=== PATIENT | male | born 1950 | race Caucasian/White ===

== ENCOUNTER 2016-06-01 05:47 | Inpatient (IN) ==
[2016-05-24 14:34] LABS: Basophils # 0.1 10*3/uL (0.0-0.2); Basophils % 0.8 % (0.0-0.8); Eosinophils # 0.2 10*3/uL (0.0-0.87); Eosinophils % 2.4 % (0.00-10.9); Hematocrit 44.5 VOL% (42.0-52.0); Hemoglobin 14.1 GM/DL (14.0-18.0); Immature Granulocytes % 1.7 %; Immature Granulocytes Absolute 0.11 #; Lymphocytes # 2.1 10*3/uL (1.4-4.0); Lymphocytes % 33.8 % (21.2-54.2); Mean Corpuscular HGB Conc 31.7 GM/DL (32-36); Mean Corpuscular Hemoglobin 28 PG (27-34); Mean Corpuscular Volume 87.1 FL (87-102); Mean Platelet Volume 9.9 FL (9.6-12.0); Monocytes # 0.6 10*3/uL (0.11-0.8); Neutrophils # 3.3 10*3/uL (1.4-7.4); Neutrophils % 52.3 % (38.7-73.9); Platelet Count 176 T/CUMM (130-400); Red Blood Count 5.11 MC/CUMM (3.8-5.5); Red Cell Distribution Width 13.7 % (9.3-17.3); White Blood Count 6.3 T/CUMM (4-12)
[2016-05-24 14:43] LABS: Bilirubin,Total 0.6 MG/DL (0.2-1.0); Calcium 9.3 MG/DL (8.5-10.1); Osmolality,Calculated 291.4 MOS/KG (273-304); Potassium 4.9 MMOL/L (3.5-5.1); Total Protein 7.2 G/DL (6.4-8.3)
[2016-06-01] MEDS ORDERED: VANCOMYCIN INJ 1,000 MG in SODIUM CHLORIDE 0.9% 250 ML IV ONE (06:00)
[2016-06-01] MEDS ORDERED: VANCOMYCIN 1,000 MG VIAL ONE (06:28)
[2016-06-01] MEDS ORDERED: ALBUTEROL/IPRATROPIUM 3 ML NEB RESP TX ONE (06:44)
[2016-06-01] MEDS ORDERED: HEPARIN/NACL 0.9% 2 UNITS/ML 2,000 ML IV ONE (07:30)
--- NOTE | 2016-06-01 08:23 | History and Physical Update ---
History and Physical Update - History and Physical H&P was reviewed, the patient examined and there: are no changes in the patients condition since last H&P was completed.
[2016-06-01] MEDS ORDERED: ROCURONIUM 100 MG/10 ML VIAL IV ONE (08:25)
[2016-06-01] MEDS ORDERED: HEPARIN 1,000 UNIT/1 ML VIAL ONE (08:25)
[2016-06-01] MEDS ORDERED: LIDOCAINE 2% 5 ML VIAL ONE (08:25)
[2016-06-01] MEDS ORDERED: PHENYLEPHRINE 20 MG/250 ML PREMIX IV ONE (08:25)
[2016-06-01] MEDS ORDERED: HEPARIN/NACL 0.9% 2 UNITS/ML 500 ML IV ONE (08:25)
[2016-06-01] MEDS ORDERED: HYDROCORTISONE 100 MG VIAL ONE (08:25)
[2016-06-01] MEDS ORDERED: ONDANSETRON 4 MG/2 ML VIAL ONE (08:25)
[2016-06-01] MEDS ORDERED: NITROGLYCERIN 50 MG/250 ML BOTTLE IV ONE (08:25)
[2016-06-01] MEDS ORDERED: ETOMIDATE 20 MG/10 ML VIAL IV ONE (08:25)
[2016-06-01] MEDS ORDERED: SEVOFLURANE 1 UNIT/15 MINUTE INH ONE (10:32)
[2016-06-01] MEDS ORDERED: fentaNYL 100 MCG/2 ML VIAL ONE (10:32)
[2016-06-01] MEDS ORDERED: MIDAZOLAM 2 MG/2 ML VIAL ONE (10:33)
[2016-06-01] MEDS ORDERED: ePHEDrine 50 MG/ML AMP ONE (10:33)
--- NOTE | 2016-06-01 10:57 | Post Interventional Procedure ---
Pre-op diagnosis: Expanding AAA s/p open repair years ago Post-op diagnosis: same Procedure: Revision of graft w/ stent-graft Contrast: [id number], 130 cc Flouroscopy: 4.8 min Radiologist: Sami Mackenzie Anesthesia: GETA Specimens: none sent Estimated blood loss: minimal Complications: none Condition: stable Description/Findings: Extended seal of graft proximally to the left renal artery. No endoleak after deployment. F/u w/ [address]
[2016-06-01] MEDS ORDERED: THROMBIN TOPICAL (RECOMBINANT) 5,000 UNIT VIAL TOP ONE (11:19)
[2016-06-01] MEDS ORDERED: TISSUE ADHESIVE 1 EACH APPLICATOR TOP ONE (11:19)
[2016-06-01] MEDS ORDERED: LIDOCAINE 2% TOP JELLY 5 ML TUBE TOP ONE (11:19)
[2016-06-01] MEDS ORDERED: VANCOMYCIN 500 MG VIAL IV ONE (11:19)
[2016-06-01] MEDS ORDERED: HEPARIN 5,000 UNIT/1 ML VIAL IV ONE (11:19)
--- NOTE | 2016-06-01 12:45 | Interventional Radiology Rpt ---
IR endo repair AAA ext [id number], US guide vascular access Indication: History of prior open aortic aneurysm repair. Now with new aneurysmal dilatation of the [place] aortic segment. REVISION OF PREVIOUS AORTOBIFEMORAL GRAFT WITH STENT GRAFT DEVICE Description: A formal timeout was performed. Patient was placed under general endotracheal anesthesia. Right common femoral artery is faintly palpable but 3 passes with a micropuncture needle were unsuccessful in gaining access. Therefore, sonographic evaluation shows the artery to be patent and compressible. Micropuncture needle was advanced directly into the lumen of the artery. Catheters sonographic image documents position of the needle. Needle was exchanged over wire for 2 Pro Lorman closure devices which were pre-deployed. Heparin 5000 units was given. Over the wire, a 12 Nepali sheath was advanced into the aorta. Flush catheter was situated above the renal artery. Abdominal aortogram was performed. Left renal artery was identified as the lowest. A 28 x 28 x 70 mm Medtronic extension cuff was advanced. The graft was then deployed with the inflow just below the left renal artery ostium. Suprarenal fixation components were then deployed. The stent graft was anchored in place with a compliant balloon. A angiogram was then performed in the aorta showing no evidence of endoleak and satisfactory positioning of the stent graft cuff. The catheter and sheath were removed. Right groin was secured with completion of the 2 Pro Lorman closure devices and 20 minutes manual compression. Hemostasis was achieved. Contrast: Omnipaque 350, 130 cc. Fluoroscopy: 4.8 minutes, 100 images total. Anesthesia: GETA. Impression: Successful revision of previous aortobifemoral graft using a Medtronic 28 x 28 x 70 mm device as described. Uncomplicated percutaneous closure of right groin access site. PROCEDURE INTERPRETED AT [facility] DEPARTMENT OF RADIOLOGY Final Report Signed by: Sami Mackenzie M.D.
--- NOTE | 2016-06-01 13:47 | Anesthesia ---
Anesthesia Post OP - Post Ansesthetic Evaluation Patient seen in post op: Yes Resp: within normal limits CV: within normal limits Mental: within normal limits Temp: within normal limits [id number]: within normal limits Nausea and Vomiting: within normal limits Pain: within normal limits
[2016-06-01] MEDS ORDERED: ONDANSETRON 4 MG/2 ML VIAL IV PRN (15:15)
[2016-06-01] MEDS ORDERED: CYANOCOBALAMIN IJ SCH (15:30)
[2016-06-01] MEDS ORDERED: [UNRECOGNIZED DRUG - OTHER] IJ SCH (15:30)
[2016-06-01] MEDS ORDERED: IPRATROPIUM INH SCH (17:00)
[2016-06-01] MEDS ORDERED: ALBUTEROL INH SCH (17:00)
[2016-06-01] MEDS ORDERED: [UNRECOGNIZED DRUG - OTHER] INH SCH (17:00)
[2016-06-01] MEDS: LACTATED RINGERS 1,000 ML IV SCH (18:06)
[2016-06-01] MEDS: KETOROLAC 10 MG TABLET PO SCH (18:43)
[2016-06-01] MEDS: ALBUTEROL 2.5 MG/3 ML NEB RESP TX SCH (19:19)
[2016-06-01] MEDS ORDERED: NON-FORMULARY MEDICATION (Gabapentin [Gabapentin] 800 MG) PO SCH (21:00)
[2016-06-01] MEDS ORDERED: MOMETASONE FUROATE 200 MCG INH SCH (21:00)
[2016-06-02] MEDS: KETOROLAC 10 MG TABLET PO SCH ×2 (00:43→05:41)
[2016-06-02] MEDS: LACTATED RINGERS 1,000 ML IV SCH (00:45)
[2016-06-02 05:34] LABS: Hematocrit 38.5 VOL% (42.0-52.0); Hemoglobin 12.3 GM/DL (14.0-18.0)
[2016-06-02 06:04] VITALS: BP 161/72
[2016-06-02 06:08] LABS: Calcium 8.5 MG/DL (8.5-10.1); Osmolality,Calculated 286.1 MOS/KG (273-304); Potassium 4.9 MMOL/L (3.5-5.1)
[2016-06-02] MEDS: ALBUTEROL 2.5 MG/3 ML NEB RESP TX SCH (06:54)
--- NOTE | 2016-06-02 07:40 | XRay Report ---
History is revision of aortic endograft Mild air scattered throughout the small and large bowel. Pleural and parenchymal opacities in the right lung base again seen No organomegaly seen There is a aortic endograft present. Impression: 1. Nonspecific bowel gas pattern. 2. Aortic endograft present PROCEDURE INTERPRETED AT [facility] DEPARTMENT OF RADIOLOGY Final Report Signed by: Dr. Alison Islas
--- NOTE | 2016-06-02 08:52 | Discharge Summary ---
Hospital Course - Hospital Course Hospital Course: Mr. Bob underwent the revision of an old aorto biiliac bypass by placement of a endovascular cuff from the old bypass graft to the [place] aorta just at the renal arteries. This was due to the development of an abdominal aortic aneurysm in the [place] artery related to the old aortobiiliac bypass that was done in the end to side fashion. He has done quite well with the procedure his lab work and vital signs look good the small incision in the right groin looks good and he is ready for discharge. We will change none of his medications. I have advised him to limit his activities to just simple walking for the next week and shower as he wishes he does not take pain medications well so I have advised Tylenol or Advil. I will plan to see him in [address] angiogram of the aortic. Discharge Plan - Discharge Data Disposition: Disch To Home/Self Care Condition at Discharge: Stable Discharge Diet: advance to your usual diet Activity: resume usual activities as tolerated Hygiene: may shower Weight Bearing at Discharge: full weight bearing Driving: no restrictions Contact your physician if you experience:: fever over 101, Redness or swelling, Bleeding - Discharge Medications No Action Rosuvastatin [Crestor] 20 mg PO DAILY Gabapentin 800 mg PO BID Mometasone Furoate [Asmanex HFA 100 mcg] 200 mcg INH BID Albuterol Neb [Proventil Neb] 2.5 mg RESP TX TID Montelukast Tab [Singulair Tab] 10 mg PO DAILY Cyanocobalamin (Vitamin B-12) [Cyanocobalamin Injection] 1,000 mcg IJ Q30D Ipratropium/Albuterol Inhaler [Combivent Respimat Inhaler] 1 puff INH QID Lisinopril 10 mg PO DAILY - Follow Up or Referral Follow Up: Benny Bauer MD [Physician] - 1 Month (with CTA AAA. have CTA done prior to appt ) - Forms/Instructions Exam - Constitutional Vitals: Period Temp Pulse Resp BP Sys/Farias Pulse Ox Last 24 Hr 96.9 F-98.5 F 52-82 12-20 114-177/58-93 92-100 Discharge Results Procedures and tests throughout hospitalization: Pending Orders 06/01/16 Antibody Identification Routine Red Blood Cells Leuko Red Routine Type and Screen Routine Labs on day of discharge: Labs from last 24 hours 06/02/16 06/02/16 06/01/16 04:47 04:47 Unknown Hgb 12.3 L Hct 38.5 L Sodium 142 Potassium 4.9 Chloride 109 H Carbon Dioxide 25 Anion Gap 12.9 BUN 17 Creatinine 1.00 GFR Calculation 96 BUN/Creatinine Ratio 17.00 Glucose 126 H Calculated Osmolality 286.1 Calcium 8.5 Blood Type O POSITIVE Antibody Screen Antibody Identification Crossmatch 06/01/16 Unknown Hgb Hct Sodium Potassium Chloride Carbon Dioxide Anion Gap BUN Creatinine GFR Calculation BUN/Creatinine Ratio Glucose Calculated Osmolality Calcium Blood Type O POSITIVE Antibody Screen Positive Antibody Identification Anti-Fya Crossmatch See Detail DS: Provider Date of admission: 06/01/16 05:47 Primary care physician: René Hernandez MD Attending physician on admission: Sami Mackenzie MD Consults: 06/01/16 15:23 Consult to Pharmacy [CONS] Routine Reason for Pharmacy Consult: Adjust Meds Renal Funct Discharging clinician: Benny Bauer MD
[2016-06-02] MEDS ORDERED: MONTELUKAST 10 MG PO SCH (09:00)
[2016-06-02] MEDS ORDERED: ROSUVASTATIN 20 MG PO SCH (09:00)
[2016-06-02] MEDS ORDERED: NON-FORMULARY MEDICATION (Lisinopril [Lisinopril] 10 MG) PO SCH (09:00)
--- NOTE | 2016-06-02 10:30 | Event Note ---
No c/o. Ambulating. AF, VSS. Right groin WNL. Dc home today. F/U CTA in 1 month.
== END 2016-06-02 11:20 | disposition home or self-care (01) | DRG 269 ==
LOC: N.SDSINP 05:47 → N.4E 11:49
PROVIDERS: ADMIT Radiology Diagnostic Radiology; ATTEND Surgery
PROC: IRERAAA (2016-06-01 08:25)

== ENCOUNTER 2019-10-09 06:07 | Inpatient (IN) ==
[2019-10-03 11:28] LABS: Basophils # 0.1 10*3/uL (0.0-0.2); Eosinophils # 0.1 10*3/uL (0.0-0.87); Eosinophils % 1.9 % (0.00-10.9); Hemoglobin 14.5 GM/DL (14.0-18.0); Immature Granulocytes Absolute 0.12 #; Lymphocytes # 2.2 10*3/uL (1.4-4.0); Lymphocytes % 37.3 % (21.2-54.2); Mean Corpuscular HGB Conc 32.2 GM/DL (32-36); Mean Corpuscular Volume 85.2 FL (87-102); Mean Platelet Volume 10.4 FL (9.6-12.0); Neutrophils % 49.8 % (38.7-73.9); Platelet Count 169 T/CUMM (130-400); Red Blood Count 5.28 MC/CUMM (3.8-5.5); Red Cell Distribution Width 13.4 % (9.3-17.3); White Blood Count 5.9 T/CUMM (4-12)
[2019-10-03 12:04] LABS: Albumin 4.1 G/DL (3.4-5.0); Bilirubin,Total 0.5 MG/DL (0.2-1.0); Calcium 9.6 MG/DL (8.5-10.1); Osmolality,Calculated 274.8 MOS/KG (273-304); Total Protein 8.1 G/DL (6.4-8.3)
[~2019-10-09 06:07] MED LIST: ceFAZolin 1,000 MG in SYRINGE 1 EACH IV ONE
[2019-10-09] MEDS ORDERED: LACTATED RINGERS 1,000 ML IV SCH (06:30)
[2019-10-09] MEDS ORDERED: DIAZEPAM 5 MG TABLET PO ONE (06:31)
[2019-10-09] MEDS ORDERED: FAMOTIDINE 20 MG/2 ML VIAL IV ONE (06:31)
[2019-10-09] MEDS ORDERED: FAMOTIDINE 20 MG TABLET PO ONE (06:31)
[2019-10-09] MEDS ORDERED: HEPARIN/NACL 0.9% 2 UNITS/ML 500 ML IV ONE (06:35)
[2019-10-09] MEDS ORDERED: LIDOCAINE 2% 5 ML VIAL ONE (06:35)
[2019-10-09] MEDS ORDERED: FAMOTIDINE 20 MG TABLET ONE (06:56)
[2019-10-09] MEDS ORDERED: ceFAZolin 1,000 MG VIAL ONE (06:56)
[2019-10-09] MEDS ORDERED: HEPARIN/NACL 0.9% 2 UNITS/ML 3,000 ML IV ONE (07:05)
[2019-10-09] MEDS ORDERED: ALBUTEROL 2.5 MG/3 ML NEB RESP TX ONE (07:14)
[2019-10-09] MEDS ORDERED: SEVOFLURANE 1 UNIT/15 MINUTE INH ONE (10:58)
[2019-10-09] MEDS ORDERED: propofoL 200 MG/20 ML VIAL IV ONE (10:58)
[2019-10-09] MEDS ORDERED: ETOMIDATE 40 MG/20 ML VIAL IV ONE (10:59)
[2019-10-09] MEDS ORDERED: ONDANSETRON 4 MG/2 ML VIAL ONE (10:59)
[2019-10-09] MEDS ORDERED: LACTATED RINGERS 1,000 ML IV ONE (10:59)
[2019-10-09] MEDS ORDERED: PHENYLEPHRINE 1 MG/10 ML SYRINGE IV ONE (10:59)
[2019-10-09] MEDS ORDERED: SODIUM CHLORIDE 0.9% 250 ML IV ONE (10:59)
[2019-10-09] MEDS ORDERED: NEOSTIGMINE 10 MG/10 ML VIAL ONE (10:59)
[2019-10-09] MEDS ORDERED: PHENYLEPHRINE 10 MG/1 ML VIAL IV ONE (10:59)
[2019-10-09] MEDS ORDERED: GLYCOPYRROLATE 0.4 MG/2 ML VIAL ONE (10:59)
[2019-10-09] MEDS ORDERED: ROCURONIUM 100 MG/10 ML VIAL IV ONE (10:59)
[2019-10-09] MEDS ORDERED: MIDAZOLAM 2 MG/2 ML VIAL ONE (10:59)
[2019-10-09] MEDS ORDERED: DEXTROSE 50% 25 GM/50 ML VIAL IV PRN (11:10)
[2019-10-09] MEDS ORDERED: GLUCAGON 1 MG VIAL IM PRN (11:10)
[2019-10-09 12:42] LABS: Basophils # 0.1 10*3/uL (0.0-0.2); Basophils % 0.9 % (0.0-0.8); Eosinophils # 0.1 10*3/uL (0.0-0.87); Eosinophils % 1.4 % (0.00-10.9); Hematocrit 40.1 VOL% (42.0-52.0); Hemoglobin 12.4 GM/DL (14.0-18.0); Immature Granulocytes % 3.5 %; Immature Granulocytes Absolute 0.23 #; Lymphocytes # 2.2 10*3/uL (1.4-4.0); Lymphocytes % 33.2 % (21.2-54.2); Mean Corpuscular HGB Conc 30.9 GM/DL (32-36); Mean Corpuscular Volume 87.4 FL (87-102); Mean Platelet Volume 9.9 FL (9.6-12.0); Monocytes % 8.3 % (1.7-12.7); Neutrophils % 52.7 % (38.7-73.9); Platelet Count 161 T/CUMM (130-400); Red Blood Count 4.59 MC/CUMM (3.8-5.5); Red Cell Distribution Width 13.6 % (9.3-17.3); White Blood Count 6.6 T/CUMM (4-12)
[2019-10-09 12:54] LABS: Calcium 8.8 MG/DL (8.5-10.1); Osmolality,Calculated 279.4 MOS/KG (273-304)
[2019-10-09 17:02] VITALS: BP 147/86
== END 2019-10-09 19:09 | disposition home or self-care (01) | DRG 269 ==
LOC: N.SDSINP 06:07 → N.4E 11:31
PROVIDERS: ADMIT Surgery; ATTEND Surgery
PROC: IRERAAA (2019-10-09 07:44)

== ENCOUNTER 2020-05-02 02:09 | Observation (INO) ==
[2020-05-02] MEDS ORDERED: NITROGLYCERIN SL 0.4 MG TABLET SL PRN (02:19)
[2020-05-02] MEDS ORDERED: ALBUTEROL/IPRATROPIUM 3 ML NEB RESP TX STA (02:27)
[2020-05-02 02:31] LABS: Basophils # 0.1 10*3/uL (0.0-0.2); Basophils % 0.6 % (0.0-0.8); Eosinophils # 0.2 10*3/uL (0.0-0.87); Eosinophils % 1.4 % (0.00-10.9); Hematocrit 48.2 VOL% (42.0-52.0); Immature Granulocytes % 1.5 %; Immature Granulocytes Absolute 0.16 #; Lymphocytes # 2.7 10*3/uL (1.4-4.0); Lymphocytes % 24.3 % (21.2-54.2); Mean Corpuscular HGB Conc 31.1 GM/DL (32-36); Mean Corpuscular Volume 85.8 FL (87-102); Mean Platelet Volume 9.4 FL (9.6-12.0); Monocytes % 6.9 % (1.7-12.7); Neutrophils % 65.3 % (38.7-73.9); Platelet Count 192 T/CUMM (130-400); Red Blood Count 5.62 MC/CUMM (3.8-5.5)
[2020-05-02 02:50] LABS: PT Patient Result 10.9 SECS (9.8-11.9)
[2020-05-02 02:51] LABS: Albumin 4.2 G/DL (3.4-5.0); Bilirubin,Total 0.6 MG/DL (0.2-1.0); Calcium 9.4 MG/DL (8.5-10.1); Potassium 4.1 MMOL/L (3.5-5.1); Total Protein 8.6 G/DL (5.0-7.5)
[2020-05-02] MEDS ORDERED: ONDANSETRON 4 MG/2 ML VIAL IV PRN (04:22)
[2020-05-02] MEDS ORDERED: ACETAMINOPHEN 325 MG TABLET PO PRN (04:22)
[2020-05-02] MEDS ORDERED: DEXTROSE 50% 25 GM/50 ML VIAL IV PRN (04:22)
[2020-05-02] MEDS ORDERED: NICOTINE 21 MG/24 HR PATCH TRANSDERM PRN (04:22)
[2020-05-02] MEDS ORDERED: hydrALAZINE 20 MG/1 ML VIAL IV PRN (04:22)
[2020-05-02] MEDS ORDERED: GLUCAGON 1 MG VIAL IM PRN (04:22)
[2020-05-02] MEDS ORDERED: ENOXAPARIN 100 MG/ML SYRINGE SUBCUT ONE (06:10)
[2020-05-02] MEDS: ALBUTEROL/IPRATROPIUM 3 ML NEB RESP TX SCH ×3 (07:33→19:36)
[2020-05-02] MEDS ORDERED: MOMETASONE INH SCH (11:00)
[2020-05-02] MEDS ORDERED: lisinopriL 10 MG TABLET PO SCH (11:00)
[2020-05-02] MEDS: MONTELUKAST 10 MG TABLET PO SCH (12:10)
[2020-05-02] MEDS: GABAPENTIN 400 MG CAPSULE PO SCH ×2 (12:10→20:27)
[2020-05-02] MEDS ORDERED: lisinopriL 10 MG TABLET PO ONE (12:16)
[2020-05-02] MEDS: NEBIVOLOL 5 MG TABLET PO SCH (14:17)
[2020-05-02] MEDS: APIXABAN 5 MG TABLET PO SCH ×2 (14:17→20:27)
[2020-05-02] MEDS: metFORMIN 500 MG TABLET PO SCH (20:27)
[2020-05-02] MEDS ORDERED: ROSUVASTATIN 20 MG TABLET PO SCH (21:00)
[2020-05-03] MEDS: ALBUTEROL/IPRATROPIUM 3 ML NEB RESP TX SCH ×2 (01:03→07:53)
[2020-05-03 05:54] LABS: Basophils % 0.4 % (0.0-0.8); Eosinophils % 0.4 % (0.00-10.9); Hemoglobin 13.2 GM/DL (14.0-18.0); Immature Granulocytes % 1.3 %; Immature Granulocytes Absolute 0.13 #; Lymphocytes # 2.5 10*3/uL (1.4-4.0); Lymphocytes % 25.1 % (21.2-54.2); Mean Corpuscular HGB Conc 31.4 GM/DL (32-36); Mean Corpuscular Volume 85.4 FL (87-102); Mean Platelet Volume 10.3 FL (9.6-12.0); Monocytes % 11.3 % (1.7-12.7); Neutrophils % 61.5 % (38.7-73.9); Platelet Count 159 T/CUMM (130-400); Red Blood Count 4.92 MC/CUMM (3.8-5.5); Red Cell Distribution Width 14.1 % (9.3-17.3)
[2020-05-03 06:16] LABS: Calcium 8.9 MG/DL (8.5-10.1); Osmolality,Calculated 274.8 MOS/KG (273-304); Potassium 4.5 MMOL/L (3.5-5.1)
[2020-05-03 06:45] LABS: Calcium 8.7 MG/DL (8.5-10.1); Osmolality,Calculated 276.7 MOS/KG (273-304); Potassium 4.4 MMOL/L (3.5-5.1)
[2020-05-03] MEDS ORDERED: lisinopriL 10 MG TABLET PO SCH (09:00)
[2020-05-03] MEDS ORDERED: lisinopriL 20 MG TABLET PO SCH (09:00)
[2020-05-03] MEDS ORDERED: ASPIRIN EC 81 MG TABLET PO SCH (09:00)
[2020-05-03] MEDS: MONTELUKAST 10 MG TABLET PO SCH (09:09)
[2020-05-03] MEDS: GABAPENTIN 400 MG CAPSULE PO SCH (09:10)
[2020-05-03] MEDS: metFORMIN 500 MG TABLET PO SCH (09:10)
[2020-05-03] MEDS: NEBIVOLOL 5 MG TABLET PO SCH (09:10)
[2020-05-03] MEDS: APIXABAN 5 MG TABLET PO SCH (09:10)
[2020-05-03 12:12] VITALS: BP 109/64
[2020-05-03] MEDS ORDERED: ASCORBIC ACID 500 MG TABLET PO SCH (21:00)
[2020-05-09] MEDS ORDERED: APIXABAN 5 MG TABLET PO SCH (09:00)
== END 2020-05-03 16:05 | disposition home or self-care (01) ==
LOC: N.ED 02:09 → INTOOBSV 04:22 → N.EDINP 04:22 → N.TELEN 04:58
PROVIDERS: ADMIT Internal Medicine; ATTEND Internal Medicine